=== PATIENT | male | born 1975 | race Two or more races ===

== ENCOUNTER 2018-05-02 18:50 | Emergency (ER) | payer OTHER ==
[~2018-05-02] VITALS: Ht 188 cm; Wt 74.8 kg
[2018-05-03] MEDS ORDERED: TAMS0.4C PO (01:57)
[2018-05-03] MEDS ORDERED: KETO10TA2 PO (01:57)
[2018-05-03] MEDS ORDERED: CIPRO500 MG PO (02:00)
== END 2018-05-03 02:09 | disposition home or self-care (01) ==
LOC: ER 18:50
DX: N20.1 Calculus of ureter (principal); R10.814 Left lower quadrant abdominal tenderness

== ENCOUNTER 2018-12-06 14:30 | Outpatient (CLI) | payer OTHER ==
[~2018-12-06 14:30] MED LIST: CIPRO500 MG PO; KETO10TA2 PO; TAMS0.4C PO
== END 2018-12-06 14:41 | disposition home or self-care (01) ==
LOC: RAD 14:30
DX: R05 Cough (principal)

== ENCOUNTER → 2019-02-07 | Outpatient (CLI) | payer OTHER | END | disposition home or self-care (01) | LOC: RAD 14:11 | DX: N20.0 Calculus of kidney (principal) ==

== ENCOUNTER 2020-12-19 09:00 | Outpatient (CLI) | payer OTHER | END 2020-12-19 09:30 | disposition home or self-care (01) | LOC: PPH VACUNA 09:00 | PROVIDERS: ATTEND Emergency Medicine Pediatric Emergency Medicine | DX: Z23 Encounter for immunization (principal) ==

== ENCOUNTER 2022-03-09 14:11 | Outpatient (CLI) | payer OTHER | END 2022-03-09 14:24 | disposition home or self-care (01) | LOC: RAD 14:11 | PROVIDERS: ATTEND Internal Medicine Hematology & Oncology | DX: R07.89 Other chest pain (principal) ==

== ENCOUNTER 2022-12-21 11:54 | Outpatient (CLI) | payer OTHER | END 2022-12-21 12:02 | disposition home or self-care (01) | LOC: RAD 11:54 | PROVIDERS: ATTEND Internal Medicine Hematology & Oncology | DX: J20.0 Acute bronchitis due to Mycoplasma pneumoniae (principal) ==

== ENCOUNTER 2024-10-29 09:20 | Outpatient (CLI) | payer OTHER | END 2024-10-29 09:30 | disposition home or self-care (01) | LOC: RAD 09:20 | DX: M25.511 Pain in right shoulder (principal) ==

== ENCOUNTER 2024-11-05 10:21 | Outpatient (CLI) | payer OTHER | END 2024-11-05 10:28 | disposition home or self-care (01) | LOC: RAD 10:21 | DX: M54.2 Cervicalgia (principal) ==